=== PATIENT | male | born 1955 | race Two or more races ===

== ENCOUNTER 2020-01-11 06:40 | Day surgery (SDC) | payer OTHER ==
[2020-01-11] VITALS (11 sets, daily range): BP systolic 109–130; BP diastolic 66–94
[~2020-01-11] VITALS: Ht 167.6 cm; Wt 72.1 kg
[~2020-01-11 06:40] MED LIST: PROAIR HFA8.5 GM INH; ceFAZolin 1gm IVPB IVPB ONE; oxyCONTIN 20mg tab ORAL ONE
[2020-01-11] MEDS ORDERED: NS Irrig 2000ml IRRIG ONE (06:41)
[2020-01-11] MEDS ORDERED: LR 1000ml ONE (06:41)
--- NOTE | 2020-01-11 07:57 | Pre-Procedure Note/Attestation ---
Pre-Procedure Note/Attestation Complete Prior to Procedure Planned Procedure: right Procedure Narrative: shoulder diagnosctic arthroscopy, sad, possible rc repair Indications for Procedure Pre-Operative Diagnosis: right shoulder impingement, rc tear Attestation I attest that I discussed the nature of the procedure; its benefits; risks and complications; and alternatives (and the risks and benefits of such alternatives ), prior to the procedure, with the patient (or the patient's legal traveling sales representative). I attest that, if there was a reasonable possibility of needing a blood transfusion, the patient (or the patient's legal traveling sales representative) was given the [facility] standardized written summary, pursuant to the [place] Blood Safety Act ([place] Health and Safety Code # 1645, as amended). I attest that I re-evaluated the patient just prior to the surgery and that there has been no change in the patient's H&P, except as documented below: Earl Monterroso MD January 11, 2020 07:57
--- NOTE | 2020-01-11 07:58 | Operative Note - PDOC ---
Operative Note Operative Note Pre-op Diagnosis: right shoulder impingement, rc tear Procedure: see op report Post-op Diagnosis: same as pre-op plus Operative Findings: consistent w/pre-op dx studies Anesthesia: regional Specimen: none Complications: none Condition: stable Estimated Blood Loss: none Implant(s) used?: No Earl Monterroso MD January 11, 2020 07:57
[2020-01-11] MEDS ORDERED: HYDROcodone/Acetamin 5/325 tab ORAL PRN (08:00)
[2020-01-11] MEDS ORDERED: D5 1/2NS 1,000 ML IV SCH (08:00)
[2020-01-11] MEDS ORDERED: HYDROmorphone 1mg/ml Carpuject SUBQ PRN (08:00)
[2020-01-11] MEDS ORDERED: Tylenol #3 tab (300mg/30mg) ORAL PRN (08:00)
[2020-01-11] MEDS ORDERED: fentaNYL 100 mcg/2 mL IV ONE (08:34)
[2020-01-11] MEDS ORDERED: Midazolam 2mg/2ml Inj ONE (08:34)
[2020-01-11] MEDS ORDERED: Ropivacaine 5mg/ml Vial 20ml INJ ONE (08:39)
[2020-01-11] MEDS ORDERED: Lidocaine 1% MPF 10mg/ml 5ml ONE ×2 (08:40→09:29)
[2020-01-11] MEDS ORDERED: Propofol 200mg/20ml IV ONE (09:29)
[2020-01-11] MEDS ORDERED: Ketorolac 30mg Inj ONE (09:50)
[2020-01-11] MEDS ORDERED: Kenalog-40 1ml Vial ONE (09:50)
[2020-01-11] MEDS ORDERED: LR 1000ml 1,000 ML IVLG SCH (10:56)
--- NOTE | 2020-01-11 10:56 | Anethesia Preoperative Eval ---
Anesthesia Pre-op PMH/ROS General Date of Evaluation: January 11, 2020 Time of Evaluation: 09:35 Anesthesiologist: Raymond ASA Score: ASA 2 Mallampati Score Class I : Soft palate, uvula, fauces, pillars visible Class II: Soft palate, uvula, fauces visible Class III: Soft palate, base of uvula visible Class IV: Only hard plate visible Mallampati Classification: Class II Surgeon: Loc Diagnosis: R shoulder pain Surgical Procedure: R shoulder scope Anesthesia History: none Family History: no anesthesia problems Allergies: Coded Allergies: IBUPROFEN (Verified Allergy, Unknown, 01/10/20) Medications: see eMAR Patient NPO?: Yes Past Medical History Cardiovascular: Denies: HTN, CAD, CA, valve dz, arrhythmia, other Pulmonary: Reports: asthma - stable occasional inhailer use; Denies: COPD, TOMEKA, other Gastrointestinal/Genitourinary: Reports: GERD, other - kidney stones; Denies: CRI, ESRD Neurologic/Psychiatric: Reports: other - chronic pain; Denies: dementia, CVA, depression/anxiety, TIA Endocrine: Denies: DM, hypothyroidism, steroids, other HEENT: Denies: cataract (L), cataract (R), glaucoma, ELIM IRA (L), ELIM IRA (R), other Hematology/Immune: Denies: anemia, DVT, bleeding disorder, other Musculoskeletal/Integumentary: Denies: OA, RA, DJD, DDD, edema, other PMH Narrative: as above PSxH Narrative: Lumbar spine fusion, cholecystectomy, lithotripsy Anesthesia Pre-op Phys. Exam Physician Exam Last Vital Signs Date Time Temp Pulse Resp B/P (MAP) Pulse Ox O2 Delivery O2 Flow Rate FiO2 01/11/20 07:28 Room Air 01/11/20 07:23 97.8 92 18 124/89 100 Constitutional: NAD Neurologic: CN 2-12 intact Cardiovascular: RRR, no M/R/G Respiratory: CTA Gastrointestinal: S/NT/ND Airway Exam Mallampati Score: Class II MO: full Neck: flexible ROM: full Teeth: intact Dentures: no upper, no lower Anesthesia Pre-op A/P Labs see chart Studies Pre-op Studies: EKG - NSR Risk Assessment & Plan Assessment: ASA 2 Plan: GA with LMA R brachial plexus block for post op pain control Status Change Before Surgery: No Pre-Antibiotics Drug: Ancef 1gr. Given Within 1 Hr of Incision: Yes Time Given: 10:38 Greyson Andrade MD January 11, 2020 10:56
[2020-01-11] MEDS ORDERED: DiphenhydrAMINE 50mg/ml Inj IVP PRN (11:00)
[2020-01-11] MEDS ORDERED: Meperidine 25mg/0.5ml Inj (FOR RIGORS ONLY) IV PRN (11:00)
[2020-01-11] MEDS ORDERED: NS Irrig 4000ml IRRIG ONE ×2 (11:09→11:25)
[2020-01-11] MEDS ORDERED: ePHEDrine 50mg/ml Inj ONE (11:25)
[2020-01-11] MEDS ORDERED: Sodium Chloride 10ml vial INJ ONE (11:25)
--- NOTE | 2020-01-11 11:54 | Immediate Post-Op Evaluation ---
Immediate Post-Op Evalulation Immediate Post-Op Evalulation Procedure: R shoulder arthroscopy subacromion decompression RC repair Date of Evaluation: January 11, 2020 Time of Evaluation: 11:53 IV Fluids: 1000 Blood Products: none Estimated Blood Loss: min` Urinary Output: none Blood Pressure Systolic: 119 Blood Pressure Diastolic: 72 Pulse Rate: 88 Respiratory Rate: 20 O2 Sat by Pulse Oximetry: 99 Temperature (Fahrenheit): 97.6 Pain Score (1-10): 1 Nausea: No Vomiting: No Complications none Patient Status: reacts, patent, none Hydration Status: adequate Greyson Andrade MD January 11, 2020 11:54
--- NOTE | 2020-01-11 13:23 | 48 Hour Post Anesthesia Eval ---
Post Anesthesia Evaluation Procedure: R shoulder arthroscopy subacromion decompression RC repair Date of Evaluation: January 11, 2020 Time of Evaluation: 13:22 Blood Pressure Systolic: 122 0: 72 Pulse Rate: 68 Respiratory Rate: 20 Temperature (Fahrenheit): 97.6 O2 Sat by Pulse Oximetry: 98 Airway: patent Nausea: No Vomiting: No Pain Intensity: 1 Hydration Status: adequate Cardiopulmonary Status: stable Mental Status/LOC: patient returned to baseline Follow-up Care/Observations: n/a Post-Anesthesia Complications: none Follow-up care needed: ready to discharge Greyson Andrade MD January 11, 2020 13:23
--- NOTE | 2020-01-11 20:29 | Operative Note - Dictated ---
DATE OF OPERATION: 01/11/2020 PREOPERATIVE DIAGNOSES: 1. Right shoulder rotator cuff tear. 2. Right shoulder impingement syndrome. POSTOPERATIVE DIAGNOSES: 1. Right shoulder rotator cuff tear. 2. Right shoulder impingement syndrome. PROCEDURES: 1. Right shoulder diagnostic arthroscopy and extensive debridement. 2. Right shoulder subacromial decompression, bursectomy. 3. Right shoulder rotator cuff repair. SURGEON: Earl Monterroso M.D. ANESTHESIA: MAC with local. INDICATION FOR PROCEDURE: The patient is a pleasant gentleman who has had progressive right shoulder pain. He had MRI, which showed a rotator cuff tear. He failed conservative treatment, elected to undergo right shoulder arthroscopy, rotator cuff repair. Risks, limitations, expectations, and complications of procedure were discussed in detail. All questions addressed. DESCRIPTION OF PROCEDURE: After informed consent was obtained, the patient was brought to the operating room. The patient was placed under monitored anesthesia control. Right shoulder was prepped and draped in a sterile manner. Time-out was performed. Inferolateral stab incision was then made. Trocar introduced into the glenohumeral joint. No chondral damage. The anterior labrum was intact along the subscapularis and superior labrum. Full-thickness rotator cuff tear involving the anterior edge of the supraspinatus. Shaver was then placed in this area. Remnants of the tear were debrided along with the tissue lateral to the articular margin. Once that was done, the camera was placed in the subacromial space. Complete bursectomy was performed. The undersurface of the acromion was identified. Acromioplasty was started from lateral to medial and completed posterior to anterior. Once that was done, anchor was then placed lateral to the articular margin. Two mattress sutures were placed in the rotator cuff along with a lateral row anchor. Once fixation was completed, the camera was placed back in the glenohumeral joint. The footprint was completely recreated. At this point, the instruments were removed. Portal sites were closed using 3-0 Monocryl suture. Steri-Strips and a sterile dressing were applied. ESTIMATED BLOOD LOSS: None. COMPLICATIONS: None. SPECIMENS: None. IMPLANTS: Include 2 Biomet anchors. Earl Monterroso M.D. DR: [place] JOB#: [id number] CC:
== END 2020-01-11 14:15 | disposition home or self-care (01) ==
LOC: SUR 06:40 → EDBD 06:40 → SUR 14:15
DX: M75.121 Complete rotator cuff tear or rupture of right shoulder, not specified as traumatic (principal); M75.41 Impingement syndrome of right shoulder; Z88.6 Allergy status to analgesic agent; K21.9 Gastro-esophageal reflux disease without esophagitis; Z98.1 Arthrodesis status; Z90.49 Acquired absence of other specified parts of digestive tract
CPT/HCPCS: 29823; 29827; 94003; C1713; J0690; J1885; J2250; J2704; J2795; J3010; J7120; 94150

== ENCOUNTER 2020-09-19 07:25 | Day surgery (SDC) | payer OTHER ==
[~2020-09-19] VITALS: Ht 167.6 cm; Wt 72.6 kg
[2020-09-19] VITALS (13 sets, daily range): BP systolic 113–148; BP diastolic 76–92
--- NOTE | 2020-09-19 07:39 | Pre-Procedure Note/Attestation ---
Pre-Procedure Note/Attestation Complete Prior to Procedure Planned Procedure: right Procedure Narrative: shoulder pancapsular release Indications for Procedure Pre-Operative Diagnosis: right shoulder adhesive capsilitis Attestation I attest that I discussed the nature of the procedure; its benefits; risks and complications; and alternatives (and the risks and benefits of such alternatives ), prior to the procedure, with the patient (or the patient's legal phlebotomy services representative). I attest that, if there was a reasonable possibility of needing a blood transfusion, the patient (or the patient's legal phlebotomy services representative) was given the [facility] standardized written summary, pursuant to the [place] Blood Safety Act ([place] Health and Safety Code # 1645, as amended). I attest that I re-evaluated the patient just prior to the surgery and that there has been no change in the patient's H&P, except as documented below: Earl Monterroso MD Sep 19, 2020 07:39
--- NOTE | 2020-09-19 07:40 | Operative Note - PDOC ---
Operative Note Operative Note Pre-op Diagnosis: right shoulder adhesive capsilitis Procedure: see op report Post-op Diagnosis: same as pre-op plus Operative Findings: consistent w/pre-op dx studies Anesthesia: regional Specimen: none Complications: none Condition: stable Estimated Blood Loss: none Implant(s) used?: No Earl Monterroso MD Sep 19, 2020 07:40
[2020-09-19] MEDS ORDERED: Tylenol #3 tab (300mg/30mg) ORAL PRN (07:45)
[2020-09-19] MEDS ORDERED: HYDROcodone/Acetamin 5/325 tab ORAL PRN (07:45)
[2020-09-19] MEDS ORDERED: HYDROmorphone 1mg/ml Carpuject SUBQ PRN (07:45)
[2020-09-19] MEDS ORDERED: D5 1/2NS 1,000 ML IV SCH (07:45)
[2020-09-19] MEDS ORDERED: DULERA 100 MCG/13 GM INH (07:52)
[2020-09-19] MEDS ORDERED: TYLENOL WITH C1 EACH ORAL (07:54)
[2020-09-19] MEDS ORDERED: NASAL SPRAY30 M1 NS (07:56)
[2020-09-19] MEDS ORDERED: Midazolam 2mg/2ml Inj ONE (08:10)
[2020-09-19] MEDS ORDERED: fentaNYL 100 mcg/2 mL IV ONE (08:10)
[2020-09-19] MEDS ORDERED: Lidocaine 1% MPF 10mg/ml 5ml ONE (08:12)
[2020-09-19] MEDS ORDERED: oxyCONTIN 20mg tab ORAL ONE (08:15)
[2020-09-19] MEDS ORDERED: Ropivacaine 5mg/ml Vial 30ml INJ ONE (08:16)
[2020-09-19] MEDS ORDERED: Ketorolac 30mg Inj ONE (08:48)
[2020-09-19] MEDS ORDERED: EPINEPHrine 1mg/1ml Amp ONE (08:48)
[2020-09-19] MEDS ORDERED: Kenalog-40 1ml Vial ONE (08:48)
[2020-09-19] MEDS ORDERED: NS Irrig 3000ml IRRIG ONE (09:00)
[2020-09-19] MEDS ORDERED: LR 1000ml ONE (09:00)
[2020-09-19] MEDS ORDERED: Sterile Water Irrig 1000ml IRRIG ONE (09:00)
[2020-09-19] MEDS ORDERED: Sodium Chloride 10ml vial INJ ONE (09:53)
[2020-09-19] MEDS ORDERED: ePHEDrine 50mg/ml Inj ONE (09:53)
--- NOTE | 2020-09-19 09:54 | Anethesia Preoperative Eval ---
Anesthesia Pre-op PMH/ROS General Date of Evaluation: Sep 19, 2020 Time of Evaluation: 09:35 Anesthesiologist: Raymond ASA Score: ASA 2 Mallampati Score Class I : Soft palate, uvula, fauces, pillars visible Class II: Soft palate, uvula, fauces visible Class III: Soft palate, base of uvula visible Class IV: Only hard plate visible Mallampati Classification: Class II Surgeon: Loc Diagnosis: R shoulder pain Surgical Procedure: R shoulder scope Anesthesia History: none Family History: no anesthesia problems Allergies: Coded Allergies: IBUPROFEN (Verified Allergy, Unknown, 01/10/20) Medications: see eMAR Patient NPO?: Yes Past Medical History Cardiovascular: Denies: HTN, CAD, [place], valve dz, arrhythmia, other Pulmonary: Reports: asthma - mild, stable on inhalers; Denies: COPD, TOMEKA, other Gastrointestinal/Genitourinary: Reports: GERD; Denies: CRI, ESRD, other Neurologic/Psychiatric: Denies: dementia, CVA, depression/anxiety, TIA, other Endocrine: Denies: DM, hypothyroidism, steroids, other HEENT: Denies: cataract (L), cataract (R), glaucoma, SOBOBA (L), SOBOBA (R), other Hematology/Immune: Denies: anemia, DVT, bleeding disorder, other Musculoskeletal/Integumentary: Denies: OA, RA, DJD, DDD, edema, other PMH Narrative: as above PSxH Narrative: R shoulder Sx Anesthesia Pre-op Phys. Exam Physician Exam Last Vital Signs Date Time Temp Pulse Resp B/P (MAP) Pulse Ox O2 Delivery O2 Flow Rate FiO2 09/19/20 08:03 Room Air 09/19/20 08:00 97.1 89 18 127/84 98 Constitutional: NAD Neurologic: CN 2-12 intact Cardiovascular: RRR, no M/R/G Respiratory: CTA Gastrointestinal: S/NT/ND Airway Exam Mallampati Score: Class II MO: full Neck: flexible ROM: limited Teeth: missing Dentures: no upper, no lower Anesthesia Pre-op A/P Labs see chart Studies Pre-op Studies: EKG - NSR Risk Assessment & Plan Assessment: ASA 2 Plan: GA with LMA, R brachial plexus block for post op pain control Status Change Before Surgery: No Pre-Antibiotics Drug: Ancef 2gr. Given Within 1 Hr of Incision: Yes Time Given: 09:35 Greyson Andrade MD Sep 19, 2020 09:54
[2020-09-19] MEDS ORDERED: LR 1000ml 1,000 ML IVLG SCH (10:00)
[2020-09-19] MEDS ORDERED: DiphenhydrAMINE 50mg/ml Inj IVP PRN (10:00)
[2020-09-19] MEDS ORDERED: Meperidine 25mg/1ml Inj (FOR RIGORS ONLY) IV PRN (10:00)
--- NOTE | 2020-09-19 10:35 | Immediate Post-Op Evaluation ---
Immediate Post-Op Evalulation Immediate Post-Op Evalulation Procedure: R shoulder arthroscopy, lysis of adhesions Date of Evaluation: Sep 19, 2020 Time of Evaluation: 10:34 IV Fluids: 800 Blood Products: none Estimated Blood Loss: min Urinary Output: none Blood Pressure Systolic: 137 Blood Pressure Diastolic: 78 Pulse Rate: 86 Respiratory Rate: 20 O2 Sat by Pulse Oximetry: 98 Temperature (Fahrenheit): 97.8 Pain Score (1-10): 2 Nausea: No Vomiting: No Complications none Patient Status: reacts, patent, none Hydration Status: adequate Greyson Andrade MD Sep 19, 2020 10:35
--- NOTE | 2020-09-19 17:44 | Operative Note - Dictated ---
DATE OF OPERATION: 09/19/2020 PREOPERATIVE DIAGNOSES: 1. Status post right shoulder rotator cuff repair and decompression. 2. Right shoulder adhesive capsulitis. POSTOPERATIVE DIAGNOSES: 1. Status post right shoulder rotator cuff repair and decompression. 2. Right shoulder adhesive capsulitis. PROCEDURES: 1. Right shoulder diagnostic arthroscopy and pancapsular release. 2. Subacromial decompression and lysis of adhesions. 3. Manipulation under anesthesia. SURGEON: Earl Monterroso MD ANESTHESIA: Interscalene with general. INDICATION FOR PROCEDURE: The patient is a pleasant gentleman with a rotator cuff repair. He developed postoperative stiffness. He has capsulitis. After failing conservative treatment, he elected to undergo right shoulder pancapsular release. Risks, limitations, expectations, and complications were discussed in detail. All questions addressed. DESCRIPTION OF PROCEDURE: After informed consent was obtained, the patient was brought to the operating room. The patient was placed under interscalene with general anesthesia. The right shoulder was prepped and draped in sterile manner. Time-out was performed. At this point, skin was incised. Trocar was attempted to be placed in the glenohumeral joint. It was very difficult given the adhesions posteriorly. After multiple attempts, it was felt that a gentle manipulation under anesthesia was reasonable. Shoulder was elevated to 170 degrees of abduction, 170 degrees of external rotation was 80, and internal rotation was 60. At this point, a trocar was then again used to get into the shoulder joint with success. At this point, the camera was then placed in the rotator interval along with the trocar. Systematic tour of the shoulder was performed. There was no chondral damage. Anterior labrum was intact. There was erythema consistent with adhesive capsulitis. The labrum, rotator interval, supraspinatus, and biceps tendon were intact. The footprint of the rotator cuff was intact. The rotator interval was then released using the Arthro[employer] just anterior to the subscap. The camera was then placed into the rotator interval. The posterior capsular release was then performed down to the inferior aspect of the glenoid and superiorly. Once this was done, the camera was repositioned in the subacromial space. There were some subdeltoid adhesions. Lateral working portal was established and the bursectomy and release of the subdeltoid adhesions was completed, both from the lateral and posterior working portal. Once adequate decompression was performed and lysis of adhesions, instruments removed. Portal sites were closed with 3-0 Monocryl sutures. Compression dressing was applied. ESTIMATED BLOOD LOSS: None. COMPLICATIONS: None. SPECIMENS: None. Earl Monterroso M.D. DR: ARSH JOB#: [id number] CC:
[2020-09-22 09:51] VITALS: BP 118/76
--- NOTE | 2020-09-22 09:51 | 48 Hour Post Anesthesia Eval ---
Post Anesthesia Evaluation Procedure: R shoulder arthroscopy, lysis of adhesions Date of Evaluation: Sep 19, 2020 Time of Evaluation: 13:20 Blood Pressure Systolic: 118 0: 76 Pulse Rate: 68 Respiratory Rate: 20 Temperature (Fahrenheit): 97.6 O2 Sat by Pulse Oximetry: 98 Airway: patent Nausea: No Vomiting: No Pain Intensity: 1 Hydration Status: adequate Cardiopulmonary Status: stable Mental Status/LOC: patient returned to baseline Follow-up Care/Observations: n/a Post-Anesthesia Complications: none Follow-up care needed: ready to discharge Greyson Andrade MD Sep 22, 2020 09:51
== END 2020-09-19 12:25 | disposition home or self-care (01) ==
LOC: SUR 07:25
DX: M75.01 Adhesive capsulitis of right shoulder (principal); Z98.890 Other specified postprocedural states; Z88.6 Allergy status to analgesic agent; K21.9 Gastro-esophageal reflux disease without esophagitis
CPT/HCPCS: 29822; 29825; 94003; J0171; J0690; J1885; J2250; J2704; J2795; J3010; J3301; J7120; U0004; 94150; J2180